=== PATIENT | female | born 1965 | race Caucasian/White ===

== ENCOUNTER 2020-12-20 09:25 | Day surgery (SDC) | payer OTHER ==
[2020-12-16 10:59] VITALS: BMI 37.4
[2020-12-20] MEDS ORDERED: MIDAZOLAM HCL 2 MG/2 ML SINGLE DOSE VIAL ONE (12:03)
[2020-12-20] MEDS ORDERED: BUPIVACAINE HCL/PF 2.5 MG/ML - 30 ML VIAL IJ ONE (12:32)
[2020-12-20] MEDS ORDERED: DEXAMETHASONE SOD PHOSPHATE 4 MG/1 ML VIAL ONE (12:51)
[2020-12-20] MEDS ORDERED: KETOROLAC TROMETHAMINE 30 MG/1 ML VIAL ONE (12:51)
[2020-12-20] MEDS ORDERED: ONDANSETRON 4 MG/2 ML VIAL ONE ×2 (12:51→14:03)
[2020-12-20] MEDS ORDERED: ceFAZolin SODIUM 1 GM VIAL ONE (12:51)
[2020-12-20] MEDS ORDERED: BUPIVACAINE HCL/PF 0.25% (2.5MG/ML) 10 ML VIAL IJ ONE ×2 (13:08→13:15)
[2020-12-20] MEDS ORDERED: ONDANSETRON 4 MG/2 ML VIAL IVPUSH PRN (13:25)
[2020-12-20] MEDS ORDERED: oxyCODONE HCL 5 MG TABLET PO PRN (13:25)
[2020-12-20] MEDS ORDERED: LACTATED RINGERS SOLUTION 1,000 ML IV SCH (13:30)
[2020-12-20 14:42] VITALS: TEMP 98
[2020-12-20] MEDS ORDERED: oxyCODONE HCL 5 MG TABLET ONE (15:17)
[2020-12-20 18:04] VITALS: BP 138/78; PULSE 84
== END 2020-12-20 16:05 | disposition home or self-care (01) ==
LOC: FASU 09:25
PROVIDERS: ATTEND Orthopaedic Surgery
PROC: 0SBD4ZZ Excision of Left Knee Joint, Percutaneous Endoscopic Approach (ICD-10-PCS; 2020-12-20)
PROC: 0SBD4ZZ Excision of Left Knee Joint, Percutaneous Endoscopic Approach (ICD-10-PCS; 2020-12-20)
PROC: 0SBD4ZZ Excision of Left Knee Joint, Percutaneous Endoscopic Approach (ICD-10-PCS; principal; 2020-12-20 13:00)
DX: S83.242A Other tear of medial meniscus, current injury, left knee, initial encounter (principal); S83.282A Other tear of lateral meniscus, current injury, left knee, initial encounter; M65.862 Other synovitis and tenosynovitis, left lower leg; S83.8X2A Sprain of other specified parts of left knee, initial encounter; X58.XXXA Exposure to other specified factors, initial encounter; Y92.9 Unspecified place or not applicable; Y93.9 Activity, unspecified
CPT/HCPCS: 84703; 88304-TC; 94760

== ENCOUNTER 2021-10-03 06:09 | Day surgery (SDC) | payer OTHER ==
[2021-09-26 10:37] VITALS: BMI 34.9
[2021-10-03] MEDS ORDERED: MIDAZOLAM HCL 2 MG/2 ML SINGLE DOSE VIAL ONE ×2 (06:34→08:18)
[2021-10-03] MEDS ORDERED: ROPIVACAINE HCL/PF 100 MG/20 ML VIAL ONE (06:34)
[2021-10-03 07:01] VITALS: PULSE 86
[2021-10-03] MEDS ORDERED: EPINEPHrine 1:1,000 1 MG/1 ML - 30ML VIAL (INJECTION) ONE (07:18)
[2021-10-03] MEDS ORDERED: SCOPOLAMINE HYDROBROMIDE 1 PATCH PATCH.TD72 ONE (07:30)
[2021-10-03] MEDS ORDERED: KETOROLAC TROMETHAMINE 30 MG/1 ML VIAL ONE (07:32)
[2021-10-03] MEDS ORDERED: SUCCINYLCHOLINE CHLORIDE 200 MG/10 ML SYRINGE ONE (07:32)
[2021-10-03] MEDS ORDERED: LIDOCAINE HCL 2% JELLY (5 ML/TUBE) ONE (07:32)
[2021-10-03] MEDS ORDERED: ceFAZolin SODIUM 1 GM VIAL ONE (07:32)
[2021-10-03] MEDS ORDERED: PROPOFOL 20 ML ONE ×3 (07:32)
[2021-10-03] MEDS ORDERED: ONDANSETRON 4 MG/2 ML VIAL ONE (07:32)
[2021-10-03] MEDS ORDERED: LIDOCAINE HCL/PF 2% SDV 5ML VIAL ONE (07:32)
[2021-10-03] MEDS ORDERED: DEXAMETHASONE SOD PHOSPHATE 4 MG/1 ML VIAL ONE (07:32)
[2021-10-03] MEDS ORDERED: ONDANSETRON 4 MG/2 ML VIAL IVPUSH PRN (09:18)
[2021-10-03] MEDS ORDERED: oxyCODONE HCL 5 MG TABLET PO PRN ×2 (09:18)
[2021-10-03 09:50] VITALS: TEMP 98
[2021-10-03 10:13] VITALS: BP 126/76
== END 2021-10-03 11:05 | disposition home or self-care (01) ==
LOC: FASU 06:09
PROVIDERS: ATTEND Orthopaedic Surgery
PROC: 0PBB4ZZ Excision of Left Clavicle, Percutaneous Endoscopic Approach (ICD-10-PCS; 2021-10-03)
PROC: 0RBK4ZZ Excision of Left Shoulder Joint, Percutaneous Endoscopic Approach (ICD-10-PCS; 2021-10-03)
PROC: 0LS40ZZ Reposition Left Upper Arm Tendon, Open Approach (ICD-10-PCS; 2021-10-03)
PROC: 0LQ24ZZ Repair Left Shoulder Tendon, Percutaneous Endoscopic Approach (ICD-10-PCS; principal; 2021-10-03 08:31)
PROC: 0RNK4ZZ Release Left Shoulder Joint, Percutaneous Endoscopic Approach (ICD-10-PCS; 2021-10-03 08:31)
DX: M75.122 Complete rotator cuff tear or rupture of left shoulder, not specified as traumatic (principal); M75.02 Adhesive capsulitis of left shoulder; M75.42 Impingement syndrome of left shoulder; M19.012 Primary osteoarthritis, left shoulder; M66.812 Spontaneous rupture of other tendons, left shoulder; S43.432A Superior glenoid labrum lesion of left shoulder, initial encounter; X58.XXXA Exposure to other specified factors, initial encounter; Y93.9 Activity, unspecified; Y92.9 Unspecified place or not applicable
CPT/HCPCS: 81025